=== PATIENT | male | born 1975 | race Caucasian/White ===

== ENCOUNTER → 2017-10-18 | Outpatient (CLI) | payer OTHER ==
[~2017-10-18] MED LIST: IOPAMIDOL 370 MG/ML 200 ML INFUS..BTL INJ ONE; SODIUM CHLORIDE 0.9% 50ML 50 ML ONE
[2017-10-18 09:08] LABS: BLOOD UREA NITROGEN 12 mg/dL (7-26); BUN/CREATININE RATIO 12 (6-25); CREATININE, SERUM 1.03 mg/dL (0.72-1.25); EST GLOMERULAR FILTRATION RATE > 60 ML/MIN (60-)
--- NOTE | 2017-10-18 10:21 | Diagnostic Imaging Report ---
PROCEDURE: CT scan of the chest WITH intravenous contrast, using standard protocol. TECHNIQUE: The chest was scanned utilizing a multidetector helical scanner from the lung apex through the level of the adrenal glands after the IV administration of 100 cc of Isovue 370. Coronal and sagittal multiplanar reformations were obtained. COMPARISON: CT chest 04/04/2017. INDICATIONS: MULTIPLE LUNG NODULES FINDINGS: Lines/tubes: None. Lungs and Airways: Focal region of cystic change with associated patchy opacification measuring approximately 2.9 cm in greatest transverse diameter is present in the left lower lobe, series 3 image 42. The region is unchanged in size and appearance since the previous examination. Stable nodules in the right lower lobe, series 3 image 33. Pleura: The pleural spaces are clear. Heart and mediastinum: The thyroid gland is normal. No significant mediastinal, hilar or axillary lymphadenopathy is seen. The heart and pericardium are within normal limits. Soft tissues: Normal. Abdomen: Limited contrast-enhanced views of the upper abdomen show no abnormality within the visualized liver, spleen, pancreas, or kidneys. The adrenal glands are normal. Bones: The visualized bony thorax is within normal limits. IMPRESSION: No acute abnormality of the chest. Stable cystic changes in the left lower lobe and stable nodules in the right lower lobe. Dictated by: Jose Alfredo Ochoa M.D. on 10/18/2017 at 10:30 Electronically approved by: Jose Alfredo Ochoa M.D. on 10/18/2017 at 10:30
== END ==
LOC: CT 08:08
PROVIDERS: ATTEND Family Medicine
DX: R91.8 Other nonspecific abnormal finding of lung field (principal)
CPT/HCPCS: 36415; 71260; 82565; 84520; Q9967